=== PATIENT | female | born 1965 | race Caucasian/White ===

== ENCOUNTER 2023-07-09 05:24 | Day surgery (SDC) | payer MEDICAID ==
[2023-07-09] VITALS (14 sets, daily range): BP systolic 119–155; BP diastolic 66–79; PULSE 60–87; TEMP 97–98.1
[~2023-07-09] VITALS: Ht 162.6 cm; Wt 105.5 kg
[~2023-07-09 05:24] MED LIST: Famotidine 20 MG TAB PO SCH; LR 1,000 ML IV SCH; Metoclopramide 10 MG TAB PO SCH
[2023-07-09] MEDS ORDERED: MULTIVITAMIN200 MCG PO (05:59)
[2023-07-09] MEDS ORDERED: MOBIC15 MG PO (06:00)
[2023-07-09] MEDS ORDERED: GLUCOPHAGE XR500 M1 PO (06:00)
[2023-07-09] MEDS ORDERED: ASPIRIN E.C. 8181 MG PO (06:01)
[2023-07-09] MEDS ORDERED: fentaNYL 50 MCG/ML 2 ML VIAL ONE (06:35)
[2023-07-09] MEDS ORDERED: Midazolam 2 MG/2 ML VIAL ONE ×2 (06:35→07:04)
[2023-07-09] MEDS ORDERED: dexAMETHasone 10 MG/ML VIAL ONE (06:36)
[2023-07-09] MEDS ORDERED: NS 10 ML IV ONE (06:36)
[2023-07-09] MEDS ORDERED: Lidocaine PF 2% (20 MG/ML) 5 ML VIAL ONE (06:36)
[2023-07-09] MEDS ORDERED: Tranexamic Acid 1,000 MG/10 ML VIAL ONE (06:43)
[2023-07-09] MEDS ORDERED: Gentamicin 80 MG/50 ML IV.SOLN IR ONE (07:48)
[2023-07-09] MEDS ORDERED: LR 1,000 ML IV ONE (08:03)
[2023-07-09] MEDS ORDERED: Ondansetron 4 MG/2 ML VIAL IV PRN ×2 (08:15→10:00)
[2023-07-09] MEDS ORDERED: Morphine 4 MG/ML VIAL IV PRN ×2 (08:15→10:00)
[2023-07-09] MEDS ORDERED: HYDROmorphone 2 MG/1 ML VIAL IV PRN (08:15)
[2023-07-09] MEDS ORDERED: Meperidine 50 MG/ML 1 ML VIAL IV PRN (08:15)
[2023-07-09] MEDS ORDERED: Morphine 4 MG/ML VIAL IM ONE (09:05)
[2023-07-09] MEDS ORDERED: Ketorolac 30 MG/ML VIAL IM ONE (09:05)
[2023-07-09] MEDS ORDERED: Thrombin Human (Recombinant) 5,000 UNITS VIAL TP ONE (09:07)
[2023-07-09] MEDS ORDERED: NS 1,000 ML IV SCH (10:00)
[2023-07-09] MEDS ORDERED: Acetaminophen 500 MG TAB PO PRN (10:00)
[2023-07-09] MEDS ORDERED: Naloxone 0.4 MG/ML VIAL IV PRN (10:00)
[2023-07-09] MEDS ORDERED: oxyCODONE 5 MG TAB PO PRN ×2 (10:00)
[2023-07-09] MEDS ORDERED: Magnes Hydrox (MOM) 80 MG/ML 30 ML CUP PO PRN (10:00)
[2023-07-09] MEDS ORDERED: Bisacodyl 5 MG TAB PO PRN (10:00)
[2023-07-09] MEDS ORDERED: Mag/Al Hydrox/Simeth Susp 30 ML CUP PO PRN (10:00)
[2023-07-09] MEDS ORDERED: Acetaminophen 500 MG TAB PO SCH (10:46)
--- NOTE | 2023-07-09 11:13 | NUR ---
PT TO ROOM 348 PER BED WITH REPORT FROM TAYLOR ASSOCIATE SCIENTIST @1030. PT IS A/O X4, LUNGS CTA, BOWEL SOUNDS PRESENT. PEDAL PULSES PALPABLE. VSS, IV TO LFA. DRESSING TO RIGHT KNEE CDI.
--- NOTE | 2023-07-09 11:40 | NUR ---
NOTIFIED VENKAT DALAL OF HOSPITALIST CONSULT FOR MEDICAL MANGEMENT OF PT.
[2023-07-09] MEDS ORDERED: Dextrose 50% Water 25 GM/50 ML SYRINGE IV PRN (12:15)
[2023-07-09] MEDS ORDERED: Dextrose (Glucose) 15 GM (4 x 3.75 GM) Chewable TABLET PACK PO PRN (12:15)
[2023-07-09] MEDS ORDERED: Glucagon 1 MG VIAL IM PRN (12:15)
[2023-07-09] MEDS ORDERED: ceFAZolin 2 G in Water For Injection,Sterile 20 ML IV SCH (13:46)
[2023-07-09] MEDS ORDERED: Insulin Aspart (NovoLOG) SQ SCH (17:00)
--- NOTE | 2023-07-09 18:40 | NUR ---
awake resting in bed, bedside shift report received from WILBERT Saunders
--- NOTE | 2023-07-09 20:30 | NUR ---
full assessment completed, see interventions for further info, denies needs at this time
[2023-07-09] MEDS ORDERED: Celecoxib 200 MG CAP PO SCH (21:00)
[2023-07-09] MEDS ORDERED: Sennosides/Docusate 8.6-50 MG TAB PO SCH (21:00)
[2023-07-09] MEDS ORDERED: Ascorbic Acid 500 MG TAB PO SCH (21:00)
--- NOTE | 2023-07-09 21:15 | NUR ---
resting in bed
--- NOTE | 2023-07-09 22:15 | NUR ---
c/o pain 10/10 to left knee and requesting pain meds, medicated with roxicodone 5mg and scheduled tylenol, assisted up to bathroom and voids qs, then to recliner per her request,
[2023-07-10] VITALS (9 sets, daily range): BP systolic 103–159; BP diastolic 62–83; PULSE 63–75; TEMP 97.6–98.1
--- NOTE | 2023-07-10 01:45 | NUR ---
appears to be sleeping, is now back in bed, resp quiet and easy
--- NOTE | 2023-07-10 03:35 | NUR ---
c/o pain and medicated with roxicodone 5mg po,
--- NOTE | 2023-07-10 05:25 | NUR ---
has slept off and on throughout the night, up to bathroom with assistance at times,
--- NOTE | 2023-07-10 06:48 | NUR ---
bedside shift report given to WILBERT Gaitan
--- NOTE | 2023-07-10 07:30 | NUR ---
Pt doing well at shift change, reports that her pain is tolerable at this time. Pt denies any needs, going to look over menu to order
[2023-07-10 07:34] LABS: HEMOGLOBIN 11.4 g/dl (12.5-16.0)
[2023-07-10 07:40] LABS: HEMATOCRIT 33.2 % (37.0-47.0)
[2023-07-10 07:57] LABS: CALCIUM 9.1 mg/dL (8.4-10.2); CREATININE, serum 0.84 mg/dL (0.57-1.11); POTASSIUM 4.2 mmol/L (3.5-4.5)
--- NOTE | 2023-07-10 08:30 | NUR ---
Pt sitting up in the chair now, breakfast has arrived. Pt reporting her pain is 9/10, PRN pain medication given. Pt reports that she hopes/plans to go home today. Stated that her daughter will be here around 5:00pm
[2023-07-10] MEDS ORDERED: Magnes Hydrox (MOM) 80 MG/ML 30 ML CUP PO SCH (09:00)
--- NOTE | 2023-07-10 10:07 | NUR ---
Initial visit; Patient appeared to be doing well and thanked [employer] Cutter for looking in on her and offering God's blessings and a good recovery.
[2023-07-10] MEDS ORDERED: ASPI325T6 PO (11:53)
[2023-07-10] MEDS ORDERED: ROXICODONE 55 MG/TAB PO (12:05)
[2023-07-10] MEDS ORDERED: CEPHALEXIN500 M1 PO (12:06)
--- NOTE | 2023-07-10 13:00 | NUR ---
Pt doing well. Tolerating pain and therapy. Pt does well getting around and is excited to get to go home. Drain removed from left knee. Maryanne is CDI
--- NOTE | 2023-07-10 14:10 | NUR ---
Track Fitter met with patient to discuss discharge planning. Patient advised she will be discharged later this afternoon. Patient lives in [place], [place] with her grandson Johana who she adopted. Patient sees Dr. Diaz for primary care and obtains medications from [facility] with no difficulties. Patient advised her daughter has secured a walker for her and that she is normally independent with ADLS. Patient has outpatient PT set up at [facility] and advised her first appointment will be Friday at 1500. Patient expressed interested in completing Living Will and DPOA-HC. FABRICE assisted patient in completing these forms, then FABRICE and JENNIFER Rdz provided witness signature. Patient chose to designate two of her children: Palak "Sol" (ph#[phone]) and Gilbert (ph#[phone]). FABRICE placed copy in patient's chart then provided original and copies to patient. Discharge Plan; Home
--- NOTE | 2023-07-10 16:21 | NUR ---
Reviewed discharge instructions with pt. Discussed incision care as well as what to watch for. Reviewed follow up appointment and prescriptions. INT removed from left hand. Pt waiting on her daughter to get here for a ride. Informed her to use call light when she arrives.
--- NOTE | 2023-07-10 17:50 | NUR ---
Pt escorted out at this time
== END 2023-07-10 17:50 | disposition home or self-care (01) ==
LOC: SDCO 05:24 → SURG 10:30 → SDCO 07-10 17:50
PROVIDERS: Physician Assistant
DX: M17.12 Unilateral primary osteoarthritis, left knee (principal); E66.9 Obesity, unspecified; R73.03 Prediabetes; Z79.84 Long term (current) use of oral hypoglycemic drugs
CPT/HCPCS: OP; A9284; C1713; C1776; J0665; J0690; J1100; J1580; J1815; J1885; J2250; J2270; J2704; J2795; J3010; J7030; J7120